=== PATIENT | female | born 1930 | race Caucasian/White ===

== ENCOUNTER → 2017-04-05 | Outpatient (CLI) | payer MEDICARE, OTHER ==
[~2017-04-05] MED LIST: CALC-316 PO; GLUC1CAP48 PO; MULT-717 PO; NIFE30TA2 PO; THYR60TA PO
== END | disposition home or self-care (01) ==
LOC: STAR 12:12
PROVIDERS: ATTEND Urology
DX: Z02.9 Encounter for administrative examinations, unspecified (principal)

== ENCOUNTER → 2017-04-08 | Outpatient (CLI) | payer MEDICARE, OTHER | END | disposition home or self-care (01) | LOC: WOUND 10:19 | PROVIDERS: ATTEND Internal Medicine Cardiovascular Disease | DX: C67.5 Malignant neoplasm of bladder neck (principal); R31.0 Gross hematuria; I12.9 Hypertensive chronic kidney disease with stage 1 through stage 4 chronic kidney disease, or unspecified chronic kidney disease; N18.9 Chronic kidney disease, unspecified; Z87.891 Personal history of nicotine dependence | CPT/HCPCS: G0463; WOU0463 ==

== ENCOUNTER → 2017-04-30 | Outpatient (CLI) | payer MEDICARE, OTHER ==
[~2017-04-30] MED LIST changes: +CYSTO CONRAY II 250 ML VIAL UR ONE
== END | disposition home or self-care (01) ==
LOC: RAD 13:36
PROVIDERS: ATTEND Urology
DX: C67.9 Malignant neoplasm of bladder, unspecified (principal); D41.4 Neoplasm of uncertain behavior of bladder; Z93.6 Other artificial openings of urinary tract status
CPT/HCPCS: 74425; Q9958

== ENCOUNTER → 2017-06-15 | Outpatient (CLI) | payer MEDICARE, OTHER ==
[~2017-06-15] MED LIST changes: -CYSTO CONRAY II 250 ML VIAL UR ONE
== END | disposition home or self-care (01) ==
LOC: WOUND 13:08
PROVIDERS: ATTEND Nurse Practitioner Family
DX: N99.89 Other postprocedural complications and disorders of genitourinary system (principal); R31.0 Gross hematuria; N13.30 Unspecified hydronephrosis; N18.9 Chronic kidney disease, unspecified; Z85.51 Personal history of malignant neoplasm of bladder
CPT/HCPCS: G0463; WOU0463

== ENCOUNTER 2017-12-30 06:41 | Day surgery (SDC) | payer MEDICARE, OTHER ==
[~2017-12-30] VITALS: Ht 160 cm; Wt 65.8 kg
[~2017-12-30 06:41] MED LIST changes: +FURO20TA3 PO; +IRBE75TA31 PO
[2017-12-30] MEDS ORDERED: LACTATED RINGERS 1,000 ML IV SCH (08:00)
[2017-12-30 08:04] VITALS: BP 127/77
[2017-12-30 08:32] LABS: MICROSCOPIC INDICATED
[2017-12-30 08:33] LABS: CULTURE INDICATED? YES
[2017-12-30 08:40] LABS: ALANINE AMINOTRANSFERASE 10 U/L (12-78); ANION GAP 6 mmol/L (5-15); CALCIUM 8.7 mg/dL (8.5-10.1); CHLORIDE 112 mmol/L (98-107); CREATININE 1.56 mg/dL (0.55-1.02)
[2017-12-30 08:43] LABS: ALKALINE PHOSPHATASE 81 U/L (45-117); BILIRUBIN,TOTAL 0.4 mg/dL (0.2-1.0)
[2017-12-30] MEDS ORDERED: DEXAMETHASONE 4 MG/ML, 1ML ONE (09:24)
[2017-12-30] MEDS ORDERED: PROPOFOL 10 MG/ML, 20ML ONE (09:24)
[2017-12-30] MEDS ORDERED: CEFAZOLIN 1,000 MG ONE (09:24)
[2017-12-30] MEDS ORDERED: ONDANSETRON 2MG/ML, 2ML ONE (09:24)
[2017-12-30] MEDS ORDERED: FENTANYL PF 100 MCG/2ML ONE (09:24)
[2017-12-30] MEDS ORDERED: ACETAMINOPHEN 325 MG TABLET PO PRN (09:30)
[2017-12-30] MEDS ORDERED: OXYcodone 5 MG/5 ML ORAL.SOL UDC PO PRN (09:30)
[2017-12-30] MEDS ORDERED: ONDANSETRON 2MG/ML, 2ML IVPush PRN (09:30)
[2017-12-30] MEDS ORDERED: EPHEDRINE 50 MG/ML, 1ML IVPush PRN (09:30)
[2017-12-30] MEDS ORDERED: METOPROLOL 1 MG/ML, 5ML IV PRN (09:30)
[2017-12-30] MEDS ORDERED: HYDROmorphone 1 MG/ML, 1ML IV PRN (09:30)
[2017-12-30] MEDS ORDERED: ALBUTEROL SULFATE 2.5 MG/3 ML NPPB PRN (09:30)
[2017-12-30] MEDS ORDERED: FENTANYL PF 100 MCG/2ML IV PRN (09:30)
[2017-12-30] MEDS ORDERED: LABETALOL 5MG/ML, 20ML IV PRN (09:30)
[2017-12-30] MEDS ORDERED: hydrALAzine 20 MG/ML, 1ML IV PRN (09:30)
[2017-12-30] MEDS ORDERED: THROMBIN 5,000 UNIT VIAL TP ONE (10:05)
[2017-12-30] MEDS ORDERED: ACETAMINOPHEN 650 MG/20.3 ML UDC ONE (10:52)
[2017-12-30] MEDS ORDERED: ACETAMINOPHEN 325 MG TABLET ONE (10:52)
== END 2017-12-30 14:10 ==
LOC: OUT 06:41
PROVIDERS: ATTEND Urology
DX: C52 Malignant neoplasm of vagina (principal); N93.9 Abnormal uterine and vaginal bleeding, unspecified; Z85.89 Personal history of malignant neoplasm of other organs and systems; Z85.51 Personal history of malignant neoplasm of bladder; Z98.890 Other specified postprocedural states; Z90.710 Acquired absence of both cervix and uterus; Z72.89 Other problems related to lifestyle; Z87.440 Personal history of urinary (tract) infections
CPT/HCPCS: 36415; 57100; 80053; 81001; 87086; 88305; 93005; J0690; J1100; J2405; J2704; J3010; J7120